=== PATIENT | female | born 1990 | race Caucasian/White ===

== ENCOUNTER 2017-04-14 08:08 | Emergency (ER) | payer MEDICAID, OTHER ==
[~2017-04-14] VITALS: Ht 170.2 cm; Wt 54.0 kg
[~2017-04-14 08:08] MED LIST: ALPR0.5T PO; LEVO25TA9 PO
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
--- NOTE | 2017-04-14 08:35 | NUR ---
URINE OBTAINED AND SENT TO LAB.
[2017-04-14 08:42] LABS: BASOPHILS % (AUTO) 0.2 % (0.0-2.0); EOSINOPHILS # (AUTO) 0.3 /CMM (0.0-0.7); EOSINOPHILS % (AUTO) 4.1 % (0.0-6.0); HEMATOCRIT 41 % (33-45); HEMOGLOBIN 13.8 g/dL (11.5-14.8); LYMPHOCYTES # (AUTO) 1.3 /CMM (0.8-4.8); LYMPHOCYTES % (AUTO) 19.4 % (20.0-44.0); MEAN CORPUSCULAR HEMOGLOBIN 30 PG (26.0-33.0); MEAN CORPUSCULAR HGB CONC 33 g/dl (31.0-36.0); MEAN CORPUSCULAR VOLUME 90 fL (82-100); MONOCYTES # (AUTO) 0.6 /CMM (0.1-1.30); MONOCYTES % (AUTO) 8.6 % (2.0-12.0); NEUTROPHILS # (AUTO) 4.7 /CMM (1.8-8.9); NEUTROPHILS % (AUTO) 67.7 % (43.0-81.0); PLATELET COUNT (AUTO) 292 /CMM (150-450); RDW COEFFICIENT OF VARIATION 12.7 (11.5-15.0); RED BLOOD CELL COUNT(AUTO) 4.61 MIL/uL (4.0-5.2); WHITE BLOOD COUNT (AUTO) 6.9 K/uL (4.3-11.0)
[2017-04-14 08:43] LABS: APPEARANCE,URINE CLOUDY (CLEAR); BILIRUBIN,URINE NEGATIVE (NEGATIVE); BLOOD, URINE NEGATIVE Ery/uL (NEGATIVE); COLOR,URINE YELLOW (YELLOW); KETONES,URINE NEGATIVE (NEGATIVE); LEUKOCYTE ESTERASE ,URINE 1+ (NEGATIVE); NITRITE, URINE NEGATIVE (NEGATIVE); PH,URINE 5.5 (5.0-8.0); PROTEIN,URINE NEGATIVE (NEGATIVE); UGLUCOSE NEGATIVE (NEGATIVE); UROBILINOGEN,URINE 0.2 EU/dL (0.2)
[2017-04-14 08:51] LABS: BACTERIA,URINE Few /HPF (None Seen); RBC,URINE 0-2 /HPF (0-2); SQUAMOUS EPITHELIAL CELL,UR Few /HPF (None Seen)
[2017-04-14 09:14] LABS: ALANINE AMINOTRANSFERASE 19 U/L (12-78); ALBUMIN 3.9 g/dL (3.4-5.0); ALCOHOL, BLOOD < 3 mg/dL (0-0); ALKALINE PHOSPHATASE 70 U/L (46-116); ASPARTATE AMINOTRANSFERASE 17 U/L (15-37); BILIRUBIN,DIRECT 0.1 mg/dL (0.0-0.2); BILIRUBIN,TOTAL 0.6 mg/dL (0.2-1.0); CARBON DIOXIDE 24 mmol/L (21-32); CREATININE 0.7 mg/dL (0.6-1.3); GLUCOSE 98 mg/dL (74-106); SALICYLATE 0.3 mg/dL (2.8-20.0); TOTAL PROTEIN, SERUM 8.1 g/dL (6.4-8.2); UREA NITROGEN, BLOOD 8 mg/dL (7-18)
[2017-04-14 09:15] LABS: ACETAMINOPHEN < 2 ug/ml (10-30)
[2017-04-14 09:22] LABS: CHLORIDE 102 mmol/L (98-107); POTASSIUM 3.6 mmol/L (3.5-5.1); SODIUM SERUM 137 mmol/L (136-145)
[2017-04-14] MEDS ORDERED: ACETAMINOPHEN ES 500 MG TABLET PO ONE ×2 (09:30→10:00)
[2017-04-14] MEDS ORDERED: ACETAMINOPHEN ES 500 MG TABLET ONE ×2 (09:32)
--- NOTE | 2017-04-14 09:42 | NUR ---
Patient discharged to home in stable condition. Written and verbal after care instructions given. Patient verbalizes understanding of instruction.
[2017-04-14 09:48] VITALS: BP 101/60
[2017-04-15] MEDS ORDERED: MIRT15TA PO (11:11)
[2017-04-15] MEDS ORDERED: TRAZ-144 PO (11:11)
[2017-04-16] MEDS ORDERED: LEVO500T15 PO (06:54)
[2017-04-16] MEDS ORDERED: ONDA4TAB5 PO (06:55)
[2017-06-01] MEDS ORDERED: LEVO500T15 PO (08:41)
== END 2017-04-14 09:49 | disposition home or self-care (01) ==
LOC: ER 08:09
DX: T43.211A Poisoning by selective serotonin and norepinephrine reuptake inhibitors, accidental (unintentional), initial encounter (principal); T42.4X1A Poisoning by benzodiazepines, accidental (unintentional), initial encounter; F32.9 Major depressive disorder, single episode, unspecified; F41.9 Anxiety disorder, unspecified; E06.3 Autoimmune thyroiditis; R82.99 Other abnormal findings in urine; Y92.89 Other specified places as the place of occurrence of the external cause; Z88.0 Allergy status to penicillin
CPT/HCPCS: 36415; 80048; 80076; 80305; 80329; 81001; 84703; 85025; 87086; 99284; A4606; G0480 ×2; Z7610; 81000-TC

== ENCOUNTER 2017-04-14 23:09 | Emergency (ER) | payer OTHER ==
[~2017-04-14] VITALS: Ht 170.2 cm; Wt 52.2 kg
[2017-04-14 23:15] VITALS: BP 112/67
[2017-04-14 23:45] LABS: APPEARANCE,URINE CLEAR (CLEAR); BILIRUBIN,URINE NEGATIVE (NEGATIVE); BLOOD, URINE NEGATIVE Ery/uL (NEGATIVE); KETONES,URINE NEGATIVE (NEGATIVE); LEUKOCYTE ESTERASE ,URINE 1+ (NEGATIVE); NITRITE, URINE NEGATIVE (NEGATIVE); PROTEIN,URINE NEGATIVE (NEGATIVE); UGLUCOSE NEGATIVE (NEGATIVE); UROBILINOGEN,URINE 0.2 EU/dL (0.2)
[2017-04-14 23:49] LABS: COLOR,URINE LIGHT PINK (YELLOW)
[2017-04-14 23:53] LABS: BACTERIA,URINE 1+ /HPF (None Seen); RBC,URINE 0-2 /HPF (0-2); SQUAMOUS EPITHELIAL CELL,UR Few /HPF (None Seen); WBC,URINE 0-2 /HPF (0-3)
[2017-04-14] MEDS ORDERED: NITROFURANTOIN/NITROFURAN MAC 100 MG CAPSULE PO STA (23:54)
[2017-04-14] MEDS ORDERED: NITROFURANTOIN/NITROFURAN MAC 100 MG CAPSULE ONE (23:59)
[2017-04-15] MEDS ORDERED: ONDANSETRON 4 MG TAB.RAPDIS ONE (00:12)
[2017-04-15] MEDS ORDERED: ONDANSETRON 4 MG TAB.RAPDIS SL ONE (00:30)
[2017-04-15] MEDS ORDERED: MIRT15TA PO (11:11)
[2017-04-15] MEDS ORDERED: TRAZ-144 PO (11:11)
[2017-04-16] MEDS ORDERED: LEVO500T15 PO (06:54)
[2017-04-16] MEDS ORDERED: ONDA4TAB5 PO (06:55)
[2017-06-01] MEDS ORDERED: LEVO500T15 PO (08:41)
== END 2017-04-15 00:45 | disposition home or self-care (01) ==
LOC: ER 23:12
DX: N39.0 Urinary tract infection, site not specified (principal); F32.9 Major depressive disorder, single episode, unspecified; F41.9 Anxiety disorder, unspecified; Z88.0 Allergy status to penicillin
CPT/HCPCS: 81001; 84703; 87086; 99284; A4606; Q0162; Z7610; 81000-TC

== ENCOUNTER 2017-04-15 07:10 | Inpatient (IN) | payer OTHER ==
[~2017-04-15] VITALS: Ht 170.2 cm; Wt 52.2 kg
--- NOTE | 2017-04-15 07:30 | NUR ---
NAUSEA, VOMITING, FEVER. WAS SEEN HERE YESTERDAY. A/A/O. CHANGED TO GOWN. SIDE RAISL UP. HOB ELEVATED. CONNECTED TO MONITOR. CHANEGED TO GOWN. SEEN AND EVALUATED BY ED PROVIDER.
[2017-04-15] MEDS ORDERED: ONDANSETRON HCL/PF 4 MG/2 ML VIAL ONE (07:33)
--- NOTE | 2017-04-15 07:35 | NUR ---
NEW IV STARTED ON RAC, 20 G. BLOOD DRAWN AND SENT TO LAB.
[2017-04-15 07:40] LABS: BASOPHILS % (AUTO) 0.3 % (0.0-2.0); EOSINOPHILS # (AUTO) 0.3 /CMM (0.0-0.7); EOSINOPHILS % (AUTO) 3.7 % (0.0-6.0); HEMATOCRIT 41 % (33-45); HEMOGLOBIN 13.8 g/dL (11.5-14.8); LYMPHOCYTES # (AUTO) 1.9 /CMM (0.8-4.8); LYMPHOCYTES % (AUTO) 25.4 % (20.0-44.0); MEAN CORPUSCULAR HEMOGLOBIN 30 PG (26.0-33.0); MEAN CORPUSCULAR HGB CONC 33 g/dl (31.0-36.0); MEAN CORPUSCULAR VOLUME 90 fL (82-100); MONOCYTES # (AUTO) 0.5 /CMM (0.1-1.30); MONOCYTES % (AUTO) 6.9 % (2.0-12.0); NEUTROPHILS # (AUTO) 4.7 /CMM (1.8-8.9); NEUTROPHILS % (AUTO) 63.7 % (43.0-81.0); PLATELET COUNT (AUTO) 301 /CMM (150-450); RDW COEFFICIENT OF VARIATION 12.6 (11.5-15.0); WHITE BLOOD COUNT (AUTO) 7.3 K/uL (4.3-11.0)
[2017-04-15] MEDS: IV NS 0.9% 1,000 ML BAG IV ONE ×2 (07:40→07:41)
--- NOTE | 2017-04-15 07:40 | NUR ---
PATIENT MEDICATED PER MD ORDERS.
[2017-04-15] MEDS: ONDANSETRON HCL/PF 4 MG/2 ML VIAL IVP ONE ×2 (07:41→07:44)
[2017-04-15 07:49] LABS: CREATININE 0.7 mg/dL (0.6-1.3)
[2017-04-15 07:56] LABS: BILIRUBIN,DIRECT 0.1 mg/dL (0.0-0.2); BILIRUBIN,TOTAL 0.5 mg/dL (0.2-1.0); TOTAL PROTEIN, SERUM 8.3 g/dL (6.4-8.2)
[2017-04-15] MEDS ORDERED: PROMETHAZINE HCL 25 MG/ML AMPUL ONE (08:18)
[2017-04-15] MEDS ORDERED: diphenhydrAMINE HCL 50 MG/ML VIAL ONE (08:18)
--- NOTE | 2017-04-15 08:28 | NUR ---
PT UNABLE TO PROVIDE URINE SAMPLE AT THIS TIME. WILL TRY AGAIN LATER
[2017-04-15] MEDS ORDERED: diphenhydrAMINE HCL 50 MG/ML VIAL IV ONE (08:30)
[2017-04-15] MEDS ORDERED: PROMETHAZINE HCL 25 MG/ML AMPUL IV ONE (08:30)
[2017-04-15 08:43] LABS: APPEARANCE,URINE TURBID (CLEAR); BILIRUBIN,URINE NEGATIVE (NEGATIVE); BLOOD, URINE NEGATIVE Ery/uL (NEGATIVE); COLOR,URINE YELLOW (YELLOW); KETONES,URINE 1+ (NEGATIVE); LEUKOCYTE ESTERASE ,URINE 1+ (NEGATIVE); NITRITE, URINE NEGATIVE (NEGATIVE); PROTEIN,URINE NEGATIVE (NEGATIVE); UGLUCOSE NEGATIVE (NEGATIVE); UROBILINOGEN,URINE 0.2 EU/dL (0.2)
--- NOTE | 2017-04-15 08:45 | NUR ---
URINE SAMPLE WAS COLLECTED FROM PATIENT AND SEND TO LAB.
[2017-04-15 09:03] LABS: BACTERIA,URINE 1+ /HPF (None Seen); RBC,URINE NONE SEEN /HPF (0-2); SQUAMOUS EPITHELIAL CELL,UR Few /HPF (None Seen)
[2017-04-15] MEDS ORDERED: IV NS 0.9% 1,000 ML IV ONE (09:30)
--- NOTE | 2017-04-15 10:00 | NUR ---
Patient is resting comfortably in bed with eyes closed. Easily aroused. VSS.
[2017-04-15 11:00] VITALS: BP 126/62
[2017-04-15] MEDS ORDERED: LORAZEPAM INJ 2 MG/ML VIAL IV ONE (11:00)
[2017-04-15] MEDS ORDERED: LORAZEPAM INJ 2 MG/ML VIAL ONE (11:04)
[2017-04-15] MEDS ORDERED: TRAZ-144 PO (11:11)
[2017-04-15] MEDS ORDERED: MIRT15TA PO (11:11)
--- NOTE | 2017-04-15 12:08 | NUR ---
MS RN INITIAL NOTES PATIENT IN ROOM. NO SOB OR DISTRESS NOTED AT THIS TIME. PATIENT DENIES PAIN. ON ROOM AIR SATING HIGH 90S. PATIENT ORIENTED TO ROOM AND CALL LIGHT. PATIENT REPORTS MILD FEELING OF NAUSEA AT THIS TIME. CALLED DR LEE WHO GAVE VERBAL ORDERS FOR MEDS AND LABS. WILL CONTINUE TO MONITOR PATIENT.
[2017-04-15] MEDS ORDERED: ALPRAZOLAM 0.5 MG TABLET PO PRN (13:30)
[2017-04-15] MEDS: PANTOPRAZOLE 40 MG TABLET.DR PO SCH (13:33)
[2017-04-15] MEDS: LEVOFLOXACIN 250 MG /D5W 50 ML 250 MG in PREMIX 1 EA IV SCH (15:01)
[2017-04-15] MEDS: Potassium Chloride 20 MEQ in IV D5/ 0.9% NACL 1,000 ML IV PRN (15:01)
[2017-04-15] MEDS: ONDANSETRON HCL/PF 4 MG/2 ML VIAL IV PRN (15:17)
[2017-04-15 16:00] VITALS: BP 99/63
[2017-04-15] MEDS ORDERED: ACETAMINOPHEN 325 MG TABLET PO PRN (16:30)
--- NOTE | 2017-04-15 17:12 | NUR ---
RN NOTES DR LEE ON FLOOR MD ASKS TO HAVE XANAX CHANGED TO 0.75MG DAILY AND HAVE A PRN DOSE OF 0.25MG. WILL PLACE ORDERS.
[2017-04-15] MEDS ORDERED: ALPRAZOLAM 0.25 MG TABLET PO PRN (17:30)
[2017-04-15] MEDS ORDERED: ACETAMINOPHEN ES 500 MG TABLET PO PRN (17:30)
[2017-04-15] MEDS ORDERED: HYDROCODONE/APAP 5/325MG 1 EACH TABLET PO PRN (17:30)
--- NOTE | 2017-04-15 18:37 | NUR ---
RN CLOSING NOTES NO SIGNIFICANT CHANGES IN PATIENT CONDITION THROUGHOUT THE SHIFT. NO SOB OR DISTRESS NOTED AT THIS TIME. PATIENT DENIES PAIN. BED IN A LOW POSITION, CALL LIGHT WITHIN PATIENT REACH. WILL ENDORSE FOR KAELA.
--- NOTE | 2017-04-15 19:00 | NUR ---
MS RN OPENING NOTES RECEIVE PT RESTING IN BED, A/OX 4. NO S/S OF RESPIRATORY DISTRESS OR SOB. SAFETY MEASURES IN PLACE, ON LOW BED TO ENSURE SAFETY. CALL LIGHT WITHIN REACH. WILL CONTINUE TO MONITOR
[2017-04-15 20:00] VITALS: BP 107/67
[2017-04-15] MEDS ORDERED: MIRTAZAPINE 15 MG TABLET PO SCH (22:00)
--- NOTE | 2017-04-15 22:37 | NUR ---
PLACED A CALL TO DR. LEE, [place] SPOKE TO DR. LEE AND RELAYED PT IS REQUESTING TO HAVE XANAX 0.5 MG 1 TABLET PO EVERY 6 HOURS PRN D/C 0.25 MG XANAX PO PRN NOTED AND CARRIED OUT Addendum: 04/15/17 at 2251 by ANDREW BASS RN ADDENDUM: DR. LEE ORDERED OK TO GIVE 0.5 MG 1 TABLET EVERY 6 HOURS PRN
[2017-04-16] MEDS: Potassium Chloride 20 MEQ in IV D5/ 0.9% NACL 1,000 ML IV PRN (03:43)
[2017-04-16] MEDS ORDERED: ALPRAZOLAM 0.5 MG TABLET ONE (06:06)
[2017-04-16] MEDS: ALPRAZOLAM 0.25 MG TABLET PO PRN ×2 (06:09→13:05)
[2017-04-16] MEDS: ONDANSETRON HCL/PF 4 MG/2 ML VIAL IV PRN ×3 (06:17→17:05)
[2017-04-16] MEDS ORDERED: LEVO500T15 PO (06:54)
[2017-04-16] MEDS ORDERED: ONDA4TAB5 PO (06:55)
[2017-04-16 06:59] LABS: BASOPHILS % (AUTO) 0.2 % (0.0-2.0); EOSINOPHILS # (AUTO) 0.2 /CMM (0.0-0.7); EOSINOPHILS % (AUTO) 1.6 % (0.0-6.0); HEMATOCRIT 41 % (33-45); HEMOGLOBIN 13.8 g/dL (11.5-14.8); LYMPHOCYTES # (AUTO) 3.3 /CMM (0.8-4.8); MEAN CORPUSCULAR HEMOGLOBIN 30 PG (26.0-33.0); MEAN CORPUSCULAR HGB CONC 33 g/dl (31.0-36.0); MEAN CORPUSCULAR VOLUME 90 fL (82-100); MONOCYTES # (AUTO) 0.6 /CMM (0.1-1.30); MONOCYTES % (AUTO) 6.5 % (2.0-12.0); NEUTROPHILS # (AUTO) 5.5 /CMM (1.8-8.9); NEUTROPHILS % (AUTO) 57.7 % (43.0-81.0); PLATELET COUNT (AUTO) 336 /CMM (150-450); RED BLOOD CELL COUNT(AUTO) 4.58 MIL/uL (4.0-5.2); WHITE BLOOD COUNT (AUTO) 9.6 K/uL (4.3-11.0)
--- NOTE | 2017-04-16 07:05 | NUR ---
MS RN CLOSING NOTES PATIENT ASLEEP AND EASILY AWAKEN, PT A/O X4, IN STABLE CONDITION, NO CHANGE OF CONDITION THROUGHOUT THE SHIFT. SEMI FOWLERS, RESPIRATIONS EVEN AND UNLABORED, APPEARS NOT IN RESPIRATORY DISTRESS.TOLERATING ROOM AIR 02 SAT 100% RAC 20G PATENT AND INTACT WITH NO S/S OF INFILTRATION NOTED. NO COMPLAINS OF PAIN AT THIS TIME. NURSING CARE RENDERED, KEPT CLEAN AND DRY AND COMFORTABLE, NEEDS ATTENDED AND ANTICIPATED,SAFE HAZARD FREE ENVIRONMENT PROVIDED. OFFLOAD AT ALL TIMES. CALL LIGHT WITHIN EASY TO REACH, FREQUENT VISUAL CHECK DONE FOR SAFETY EVERY 2 HOURS.ON LOW BED AT ALL TIMES TO ENSURE SAFETY, WILL ENDORSE TO THE NEXT SHIFT CONTINUE PLAN OF CARE
[2017-04-16 07:13] VITALS: BP 112/62
--- NOTE | 2017-04-16 07:20 | NUR ---
RN INITIAL NOTES REPORT RECEIVED AT THE BEDSIDE. PATIENT IS SLEEPING. NO SOB OR DISTRESS NOTED AT THIS TIME. PATIENT DOES NOT APPEAR TO BE IN PAIN, NO FACIAL GRIMACE NOTED. BED IN A LOW POSITION, CALL LIGHT WITHIN PATIENT REACH. WILL CONTINUE TO MONITOR.
[2017-04-16 07:31] LABS: CREATININE 0.7 mg/dL (0.6-1.3)
[2017-04-16 08:00] VITALS: BP 109/62
--- NOTE | 2017-04-16 08:23 | NUR ---
RN NOTES ATTEMPTED TO GIVE PATIENT HER AM MEDS. PATIENT STATES, "LATER, I WANT TO SLEEP NOW." WILL ATTEMPTS AGAIN LATER.
[2017-04-16] MEDS ORDERED: ALPRAZOLAM 0.25 MG TABLET PO SCH (09:00)
[2017-04-16] MEDS ORDERED: TRAZODONE 50 MG TABLET PO SCH (09:00)
[2017-04-16] MEDS ORDERED: LEVOTHYROXINE SODIUM 25 MCG TABLET PO SCH (09:00)
[2017-04-16] MEDS ORDERED: ALPRAZOLAM 0.5 MG TABLET PO PRN (09:00)
[2017-04-16] MEDS: PANTOPRAZOLE 40 MG TABLET.DR PO SCH (09:18)
[2017-04-16] MEDS: LEVOFLOXACIN 250 MG /D5W 50 ML 250 MG in PREMIX 1 EA IV SCH (13:05)
[2017-04-16] MEDS ORDERED: LORAZEPAM 0.5 MG TABLET PO PRN (14:30)
[2017-04-16 16:00] VITALS: BP_SYST 103; BP_SYST 125; BP_DIAS 53; BP_DIAS 89
--- NOTE | 2017-04-16 18:42 | NUR ---
RN CLOSING NOTES PATIENT DUE FOR DISCHARGE TONIGHT BETWEEN 7-730. ALL PAPERWORK SIGNED AND BELONGINGS ACCOUNTED FOR. NO SIGNIFICANT CHANGES IN PATIENT CONDITION THROUGHOUT THE SHIFT. NO SOB OR DISTRESS NOTED AT THIS TIME. PATIENT DENIES PAIN AT THIS TIME. BED IN A LOW POSITION, CALL LIGHT WITHIN PATIENT REACH. WILL ENDORSE FOR KAELA.
[2017-04-17] MEDS ORDERED: ALPRAZOLAM 0.5 MG TABLET PO SCH (09:00)
== END 2017-04-16 19:15 | disposition home or self-care (01) | DRG 463 ==
LOC: ER 07:12 → MEDSG2 11:59
PROVIDERS: ADMIT Internal Medicine; ATTEND Internal Medicine
DX: N39.0 Urinary tract infection, site not specified (principal); A08.4 Viral intestinal infection, unspecified; F41.0 Panic disorder [episodic paroxysmal anxiety]; F41.9 Anxiety disorder, unspecified; E03.9 Hypothyroidism, unspecified
CPT/HCPCS: 36415; 80048-TC; 80076-TC; 81000-TC; 83690-TC; 84703-TC; 85025-TC; 87081-TC; 87086-TC; A4216; A4606; J1200; J1956; J2060; J2405; J2550; J3480; J7030; J7042; Z7610

== ENCOUNTER 2017-05-31 22:58 | Inpatient (IN) | payer OTHER ==
[~2017-05-31] VITALS: Ht 170.2 cm; Wt 58.5 kg
[~2017-05-31 22:58] MED LIST changes: +LEVO500T15 PO; +MIRT15TA PO; +ONDA4TAB5 PO; +TRAZ-144 PO
[2017-05-31] MEDS ORDERED: MORPHINE SULFATE INJ 2 MG/ML DISP.SYRIN IV ONE (23:30)
[2017-05-31] MEDS ORDERED: ONDANSETRON HCL/PF 4 MG/2 ML VIAL IVP ONE (23:30)
[2017-05-31] MEDS ORDERED: IV NS 0.9% 1,000 ML BAG IV ONE ×2 (23:30)
--- NOTE | 2017-05-31 23:50 | NUR ---
PT A/OX4 BREATHING EFFORTLESSLY ON ROOM AIR, PT STATES SHE HAS BEEN HVAING ABD PAIN WITH N/V X 4 DAYS, PT ON MONITOR, IV PLACED LABS DRAWN, PT GIVEN A WARM BLANKET, MD MADE AWARE WILL CONTINUE TO MONITOR.
[2017-05-31 23:58] LABS: BASOPHILS # (AUTO) 0.1 /CMM (0.0-0.2); BASOPHILS % (AUTO) 0.7 % (0.0-2.0); EOSINOPHILS # (AUTO) 0.1 /CMM (0.0-0.7); EOSINOPHILS % (AUTO) 1.3 % (0.0-6.0); HEMATOCRIT 41 % (33-45); HEMOGLOBIN 14.1 g/dL (11.5-14.8); LYMPHOCYTES # (AUTO) 2.3 /CMM (0.8-4.8); LYMPHOCYTES % (AUTO) 29.2 % (20.0-44.0); MEAN CORPUSCULAR HEMOGLOBIN 30 PG (26.0-33.0); MEAN CORPUSCULAR HGB CONC 34 g/dl (31.0-36.0); MEAN CORPUSCULAR VOLUME 89 fL (82-100); MONOCYTES # (AUTO) 0.4 /CMM (0.1-1.30); MONOCYTES % (AUTO) 5.5 % (2.0-12.0); NEUTROPHILS # (AUTO) 5.1 /CMM (1.8-8.9); NEUTROPHILS % (AUTO) 63.3 % (43.0-81.0); PLATELET COUNT (AUTO) 363 /CMM (150-450); RDW COEFFICIENT OF VARIATION 12.7 (11.5-15.0); RED BLOOD CELL COUNT(AUTO) 4.64 MIL/uL (4.0-5.2)
[2017-06-01] MEDS ORDERED: ONDANSETRON HCL/PF 4 MG/2 ML VIAL ONE ×2 (00:04→01:53)
[2017-06-01 00:10] LABS: CALCIUM, SERUM 9.6 mg/dL (8.5-10.1); CREATININE 0.8 mg/dL (0.6-1.3); POTASSIUM 3.8 mmol/L (3.5-5.1)
[2017-06-01 00:16] LABS: ALBUMIN 4.1 g/dL (3.4-5.0); BILIRUBIN,DIRECT 0.2 mg/dL (0.0-0.2); BILIRUBIN,TOTAL 0.9 mg/dL (0.2-1.0); TOTAL PROTEIN, SERUM 8.5 g/dL (6.4-8.2)
--- NOTE | 2017-06-01 00:16 | NUR ---
PT DENIES PAIN AT THIS TIME MD MADE AWARE AND PT STATES SHE DOES NOT WANT THE MORPHINE BECAUSE SHE IS NOT IN ANY PAIN WILL CONTINUE TO MONITOR.
[2017-06-01] MEDS ORDERED: ONDANSETRON HCL/PF 4 MG/2 ML VIAL IV ONE (01:30)
--- NOTE | 2017-06-01 01:37 | NUR ---
PT HELPED TO THE BATHROOM AND PATIENT WAS ABLE TOP GIVE URINE SAMPLE, LAB CALLED FOR PICKUP, PT HELPED BACK INTO BED AND PUT BACK ON MONITOR, VSS, WILL CONTINUE TO MONITOR.
[2017-06-01 01:52] LABS: APPEARANCE,URINE SL CLOUDY (CLEAR); BILIRUBIN,URINE NEGATIVE (NEGATIVE); BLOOD, URINE 3+ Ery/uL (NEGATIVE); KETONES,URINE 1+ (NEGATIVE); LEUKOCYTE ESTERASE ,URINE TRACE (NEGATIVE); NITRITE, URINE NEGATIVE (NEGATIVE); PROTEIN,URINE NEGATIVE (NEGATIVE); UGLUCOSE NEGATIVE (NEGATIVE); UROBILINOGEN,URINE 0.2 EU/dL (0.2)
[2017-06-01 01:53] LABS: COLOR,URINE DARK YELLOW (YELLOW)
[2017-06-01 01:57] LABS: BACTERIA,URINE Moderate /HPF (None Seen)
[2017-06-01 01:58] LABS: MUCUS,URINE Moderate /LPF (None Seen); SQUAMOUS EPITHELIAL CELL,UR Many /HPF (None Seen)
[2017-06-01] MEDS ORDERED: METOCLOPRAMIDE HCL 10 MG/2 ML VIAL ONE (02:23)
[2017-06-01] MEDS ORDERED: METOCLOPRAMIDE HCL 10 MG/2 ML VIAL IV ONE (02:30)
[2017-06-01] MEDS ORDERED: LORAZEPAM INJ 2 MG/ML VIAL IV ONE (03:00)
[2017-06-01] MEDS ORDERED: LORAZEPAM INJ 2 MG/ML VIAL ONE (03:08)
[2017-06-01] MEDS ORDERED: MESA400C2 PO (04:48)
--- NOTE | 2017-06-01 04:49 | NUR ---
PT STATES SHE IS FEELING BETTER THAN BEFORE BUT THE NAUSEA IS STILL GOING ON, PT IS RESTING IN BED, NAD NOTED, ON MONITOR, VSS, WILL CONTINUE TO MONITOR.
[2017-06-01 05:00] VITALS: BP 107/46
--- NOTE | 2017-06-01 05:45 | NUR ---
MS SUGAR BOILER INITIAL NOTES ADMIT PT FROM ER VIA WHEELCHAIR ACCOMPANIED BY HUMAN RESOURCES PROFESSIONAL . DX OF VOMITING. PT IS ALERT ORIENTED X4 AMBULATORY , NO N/V NOTED AT THIS TIME. NO SIGNS OF ANY ACUTE DISTRESS NOTED. SHE STATED SHE MUCH FEEL BETTER AND SHE STARTED TELLING THE STORY BEFORE SHE ADMITTED HERE. SHE'S AWARE HOW TO USED THE CALL LIGHT. KEPT HER WARM AND COMFORTABLE AT ALL TIMES. PLACE CALL LIGHT AT REACH.
[2017-06-01] MEDS ORDERED: IV PREMIX D5 1/2NS + KCL 1,000 ML IV ONE (05:47)
[2017-06-01] MEDS ORDERED: Potassium Chloride 20 MEQ in IV D5/0.45 NACL 1,000 ML IV SCH (06:00)
[2017-06-01 06:01] VITALS: BP 107/60
--- NOTE | 2017-06-01 07:00 | NUR ---
CUSTOMER ORDER CLERK CLOSING NOTES PT RESTING AT THIS TIME WITHOUT ANY ACUTE DISTRESS OR ANY DISCOMFORT NOTED. IVF STARTED D51/2 NS WITH 20 MEQ KCL AT 100ML/HR INFUSING ON HER LEFT HAND. KEPT HER WARM AND COMFORTABLE AT ALL TIMES. ENDORSE TO AM NURSE FOR CONTINUITY OF CARE.
--- NOTE | 2017-06-01 07:20 | NUR ---
RN NOTES PT IS IN BED, SLEEPING COMFORTABLY. PT ON RA, RESPIRATIONS ARE EVEN AND UNLABORED. IV ON L HAND, INTACT AND PATENT, RUNNING D51/2 NS + 20MEQ KCL @ 100ML/HR. SAFETY MEASURES ARE IN PLACE, CALL LIGHT IS IN REACH. WILL CONTINUE TO MONITOR.
[2017-06-01] MEDS ORDERED: Potassium Chloride 20 MEQ in IV D5/0.45 NACL 1,000 ML IV PRN (07:53)
[2017-06-01 08:00] VITALS: BP 110/60
[2017-06-01] MEDS ORDERED: ONDANSETRON HCL/PF 4 MG/2 ML VIAL IVP PRN (08:00)
[2017-06-01] MEDS ORDERED: LORAZEPAM 1 MG TABLET PO PRN (08:00)
[2017-06-01] MEDS ORDERED: IBUP-1481 PO (08:17)
[2017-06-01] MEDS ORDERED: ONDA4TAB5 PO (08:17)
[2017-06-01] MEDS ORDERED: LEVO500T15 PO (08:41)
[2017-06-01] MEDS ORDERED: ALPRAZOLAM 0.5 MG TABLET PO SCH (09:00)
[2017-06-01] MEDS ORDERED: PANTOPRAZOLE 40 MG VIAL IV SCH (09:00)
[2017-06-01] MEDS ORDERED: LEVOFLOXACIN 250 MG /D5W 50 ML 250 MG in PREMIX 1 EA IV SCH (09:00)
[2017-06-01] MEDS ORDERED: TRAZODONE 50 MG TABLET PO SCH (09:00)
[2017-06-01 12:53] LABS: BASOPHILS % (AUTO) 0.4 % (0.0-2.0); EOSINOPHILS % (AUTO) 0.5 % (0.0-6.0); HEMATOCRIT 37 % (33-45); HEMOGLOBIN 12.6 g/dL (11.5-14.8); LYMPHOCYTES # (AUTO) 2.4 /CMM (0.8-4.8); LYMPHOCYTES % (AUTO) 26.8 % (20.0-44.0); MEAN CORPUSCULAR HEMOGLOBIN 30 PG (26.0-33.0); MEAN CORPUSCULAR HGB CONC 34 g/dl (31.0-36.0); MEAN CORPUSCULAR VOLUME 89 fL (82-100); MONOCYTES # (AUTO) 0.7 /CMM (0.1-1.30); MONOCYTES % (AUTO) 7.8 % (2.0-12.0); NEUTROPHILS # (AUTO) 5.8 /CMM (1.8-8.9); NEUTROPHILS % (AUTO) 64.5 % (43.0-81.0); PLATELET COUNT (AUTO) 329 /CMM (150-450); RDW COEFFICIENT OF VARIATION 12.2 (11.5-15.0); RED BLOOD CELL COUNT(AUTO) 4.15 MIL/uL (4.0-5.2); WHITE BLOOD COUNT (AUTO) 8.9 K/uL (4.3-11.0)
[2017-06-01 13:09] LABS: CALCIUM, SERUM 8.7 mg/dL (8.5-10.1); CREATININE 0.7 mg/dL (0.6-1.3); MAGNESIUM 1.8 mg/dL (1.8-2.4); PHOSPHORUS 2.8 mg/dL (2.5-4.9); POTASSIUM 3.7 mmol/L (3.5-5.1)
[2017-06-01 16:00] VITALS: BP 118/69
--- NOTE | 2017-06-01 18:10 | NUR ---
RN NOTES PT LEFT IN STABLE CONDITION ACCOMPANIED BY FRIEND. DISCHARGE PAPERS AND BELONGINGS LIST WERE SIGNED. PTS IV AND ID BAND WERE REMOVED. PT WAS TOLD TO FOLLOW UP WITH PCP WITHIN 1 WEEK AND GET AN OUTPATIENT COLONOSCOPY DONE. PT STATED SHE WOULD MAKE THE APPOINTMENTS ON HER OWN. PT WAS GIVEN NEW PRESCRIPTIONS TO HAVE FILLED.
[2017-06-01] MEDS ORDERED: MIRTAZAPINE 15 MG TABLET PO SCH (22:00)
[2017-06-02] MEDS ORDERED: LEVOTHYROXINE SODIUM 25 MCG TABLET PO SCH (08:00)
== END 2017-06-01 18:28 | disposition home or self-care (01) | DRG 249 ==
LOC: ER 23:00 → MED 06-01 04:42
PROVIDERS: ADMIT Internal Medicine; ATTEND Internal Medicine
DX: A09 Infectious gastroenteritis and colitis, unspecified (principal); K51.90 Ulcerative colitis, unspecified, without complications; N39.0 Urinary tract infection, site not specified; F32.9 Major depressive disorder, single episode, unspecified; F41.9 Anxiety disorder, unspecified; E06.3 Autoimmune thyroiditis; Z88.0 Allergy status to penicillin; Z79.899 Other long term (current) drug therapy; N20.0 Calculus of kidney
CPT/HCPCS: 36415; 80048-TC; 80076-TC; 81000-TC; 83605-TC; 83690-TC; 83735-TC; 84100-TC; 84702-TC; 84703-TC; 85025-TC; 87040-TC; 87081-TC; 87086-TC; A4216; A6402; A6403; C9113; J1956; J2060; J2405; J2765; J3480; J3490; J7030

== ENCOUNTER 2018-08-04 20:09 | Emergency (ER) | payer OTHER ==
[~2018-08-04] VITALS: Ht 170.2 cm; Wt 52.2 kg
[~2018-08-04 20:09] MED LIST changes: +IBUP-1953 PO; -LEVO500T15 PO; +LEVO500T75 PO; +MESA400C2 PO; -TRAZ-144 PO; +TRAZ-182 PO
--- NOTE | 2018-08-04 20:10 | NUR ---
PT BIB SELF. COMP OF HAVING FLU LIKE SYMPTOMS. N/V NOTED 1X EPISODE TODAY. NO SOB NOTED. NO ACUTE DISTRESS AT THIS TIME. AWAITING MD HACKETT
[2018-08-04] MEDS ORDERED: diphenhydrAMINE HCL 50 MG/ML VIAL ONE (21:14)
[2018-08-04] MEDS ORDERED: METOCLOPRAMIDE HCL 10 MG/2 ML VIAL ONE (21:14)
[2018-08-04] MEDS ORDERED: diphenhydrAMINE HCL 50 MG/ML VIAL IV ONE (21:30)
[2018-08-04] MEDS ORDERED: IV NS 0.9% 250 ML BAG IV ONE (21:30)
[2018-08-04] MEDS ORDERED: IV NS 0.9% 1,000 ML BAG IV ONE (21:30)
[2018-08-04] MEDS ORDERED: METOCLOPRAMIDE HCL 10 MG/2 ML VIAL IV ONE (21:30)
[2018-08-04] MEDS ORDERED: KETOROLAC TROMETHAMINE INJ 30 MG/ML VIAL ONE (21:40)
[2018-08-04] MEDS ORDERED: ONDANSETRON HCL/PF 4 MG/2 ML VIAL ONE (21:40)
[2018-08-04] MEDS ORDERED: ONDANSETRON HCL/PF 4 MG/2 ML VIAL IV ONE (22:00)
[2018-08-04] MEDS ORDERED: KETOROLAC TROMETHAMINE INJ 30 MG/ML VIAL IV ONE (22:00)
[2018-08-04 23:09] VITALS: BP 110/62
== END 2018-08-04 23:09 | disposition home or self-care (01) ==
LOC: ER 20:17
DX: E86.0 Dehydration (principal); R51 Headache; R19.7 Diarrhea, unspecified; R11.2 Nausea with vomiting, unspecified; F41.0 Panic disorder [episodic paroxysmal anxiety]; F17.200 Nicotine dependence, unspecified, uncomplicated; E06.3 Autoimmune thyroiditis; Z88.0 Allergy status to penicillin; Z60.2 Problems related to living alone; Z79.899 Other long term (current) drug therapy
CPT/HCPCS: 87400; J1200; J1885; J2405; J2765; J7030; J7050

== ENCOUNTER 2018-11-08 08:48 | Emergency (ER) | payer OTHER ==
[~2018-11-08] VITALS: Ht 170.2 cm; Wt 60.8 kg
[2018-11-08 08:50] VITALS: BP 117/71
[2018-11-08] MEDS ORDERED: ONDANSETRON 4 MG TAB.RAPDIS ONE (09:09)
[2018-11-08 09:29] LABS: BASOPHILS % (AUTO) 0.6 % (0.0-2.0); HEMATOCRIT 36 % (33-45); MEAN CORPUSCULAR HGB CONC 35 g/dl (31.0-36.0); MONOCYTES # (AUTO) 0.5 /CMM (0.1-1.30)
[2018-11-08] MEDS ORDERED: ONDANSETRON 4 MG TAB.RAPDIS SL ONE (09:30)
[2018-11-08] MEDS ORDERED: IBUPROFEN 600 MG TABLET PO ONE ×2 (09:35→10:00)
[2018-11-08 09:36] LABS: CALCIUM, SERUM 8.6 mg/dL (8.5-10.1); CREATININE 0.6 mg/dL (0.6-1.3); POTASSIUM 3.9 mmol/L (3.5-5.1)
[2018-11-08 09:40] LABS: EOSINOPHILS % (AUTO) 2.6 % (0.0-6.0); HEMOGLOBIN 12.5 g/dL (11.5-14.8); LYMPHOCYTES # (AUTO) 1.9 /CMM (0.8-4.8); LYMPHOCYTES % (AUTO) 25.5 % (20.0-44.0); MEAN CORPUSCULAR VOLUME 92 fL (82-100); MONOCYTES % (AUTO) 6.6 % (2.0-12.0); NEUTROPHILS # (AUTO) 4.7 /CMM (1.8-8.9); NEUTROPHILS % (AUTO) 64.7 % (43.0-81.0); PLATELET COUNT (AUTO) 305 /CMM (150-450); RED BLOOD CELL COUNT(AUTO) 3.91 MIL/uL (4.0-5.2); WHITE BLOOD COUNT (AUTO) 7.3 K/uL (4.3-11.0)
--- NOTE | 2018-11-08 10:25 | NUR ---
Patient discharged to home in stable condition. Written and verbal after care instructions given. Patient verbalizes understanding of instruction.
== END 2018-11-08 10:25 | disposition home or self-care (01) ==
LOC: ER 08:52
DX: R11.0 Nausea (principal); R53.1 Weakness; R42 Dizziness and giddiness; F41.9 Anxiety disorder, unspecified; E06.3 Autoimmune thyroiditis; F17.200 Nicotine dependence, unspecified, uncomplicated; Z88.0 Allergy status to penicillin; Z60.2 Problems related to living alone; Z79.899 Other long term (current) drug therapy
CPT/HCPCS: 36415; 80048; 85025; 99283; Q0162

== ENCOUNTER 2019-05-23 20:39 | Emergency (ER) | payer OTHER ==
[~2019-05-23] VITALS: Ht 170.2 cm; Wt 59.0 kg
--- NOTE | 2019-05-23 20:50 | NUR ---
"BIBRA FROM HOME C/O LOWER ABDOMEN INCISION SITE PAIN AND BLEEDING LIPO SUCTION PROCEDURE DONE TODAY" PT AAOX4, -SOB, NAD NOTED, VSS, PENDING MD HACKETT
[2019-05-23 21:53] LABS: BASOPHILS % (AUTO) 0.2 % (0.0-2.0); EOSINOPHILS % (AUTO) 0.3 % (0.0-6.0); HEMATOCRIT 39 % (33-45); HEMOGLOBIN 13.2 g/dL (11.5-14.8); LYMPHOCYTES # (AUTO) 1.5 /CMM (0.8-4.8); LYMPHOCYTES % (AUTO) 7.8 % (20.0-44.0); MEAN CORPUSCULAR HGB CONC 34 g/dl (31.0-36.0); MEAN CORPUSCULAR VOLUME 92 fL (82-100); MONOCYTES # (AUTO) 1.3 /CMM (0.1-1.30); MONOCYTES % (AUTO) 6.8 % (2.0-12.0); NEUTROPHILS # (AUTO) 16.2 /CMM (1.8-8.9); NEUTROPHILS % (AUTO) 84.9 % (43.0-81.0); PLATELET COUNT (AUTO) 305 /CMM (150-450); WHITE BLOOD COUNT (AUTO) 19.1 K/uL (4.3-11.0)
[2019-05-23] MEDS ORDERED: HYDROMORPHONE 1 MG/1 ML DISP.SYRIN ONE ×2 (21:55→23:20)
[2019-05-23] MEDS ORDERED: LORAZEPAM INJ 2 MG/ML VIAL ONE (21:56)
[2019-05-23] MEDS ORDERED: IV NS 0.9% 1,000 ML BAG IV ONE (22:00)
[2019-05-23] MEDS ORDERED: LORAZEPAM INJ 2 MG/ML VIAL IV ONE (22:00)
[2019-05-23] MEDS ORDERED: ONDANSETRON HCL/PF 4 MG/2 ML VIAL IV ONE (22:00)
[2019-05-23] MEDS ORDERED: HYDROMORPHONE INJ 2 MG/ML DISP.SYRIN IV ONE (22:00)
[2019-05-23] MEDS ORDERED: ONDANSETRON HCL/PF 4 MG/2 ML VIAL ONE (22:02)
[2019-05-23 22:03] LABS: CALCIUM, SERUM 8.7 mg/dL (8.5-10.1); CREATININE 0.7 mg/dL (0.6-1.3); POTASSIUM 4.1 mmol/L (3.5-5.1)
[2019-05-23] MEDS ORDERED: diphenhydrAMINE HCL 50 MG/ML VIAL ONE (23:05)
--- NOTE | 2019-05-23 23:20 | NUR ---
PT IS STATING SHE STARTING GEN BODY ITCHING, DENIES ANY SOB AT THIS TIME. CHANDA WESTON AWARE.
[2019-05-23] MEDS ORDERED: HYDROMORPHONE INJ 0.5 MG/0.5 ML SYRINGE IV ONE (23:30)
--- NOTE | 2019-05-23 23:41 | NUR ---
Patient discharged to home in stable condition. Written and verbal after care instructions given. Patient verbalizes understanding of instruction. IV removed. Catheter intact and site benign. Pressure and 4x4 applied to site. No bleeding noted.
[2019-05-24 00:11] VITALS: BP 121/67
[2019-05-24] MEDS ORDERED: diphenhydrAMINE HCL 50 MG/ML VIAL IV ONE (00:30)
== END 2019-05-24 00:12 | disposition home or self-care (01) ==
LOC: ER 20:42
DX: G89.18 Other acute postprocedural pain (principal); K91.840 Postprocedural hemorrhage of a digestive system organ or structure following a digestive system procedure; F41.9 Anxiety disorder, unspecified; D72.829 Elevated white blood cell count, unspecified; F17.200 Nicotine dependence, unspecified, uncomplicated; E06.3 Autoimmune thyroiditis; Z88.0 Allergy status to penicillin; Z60.2 Problems related to living alone; Z79.899 Other long term (current) drug therapy
CPT/HCPCS: 36415; 80048; 85025; 85730; 96374; 96375; 96376; 99283; J1170 ×2; J1200; J2060; J2405; J7030

== ENCOUNTER 2019-07-31 10:18 | Emergency (ER) | payer OTHER ==
[~2019-07-31] VITALS: Ht 170.2 cm; Wt 54.4 kg
[2019-07-31 10:27] VITALS: BP 100/60
--- NOTE | 2019-07-31 12:39 | NUR ---
AMBULATORY, NO DISTRESS NOTED, BREATHING EVEN AND UNLABORED, NO COUGHING OBSERVED. DR. CALI AT BEDSIDE EXPLAINED DISCHARGE INSTRUCTIONS. Patient discharged to home in stable condition. Written and verbal after care instructions given. Patient verbalizes understanding of instruction.
== END 2019-07-31 12:40 | disposition home or self-care (01) ==
LOC: ER 10:18
DX: J06.9 Acute upper respiratory infection, unspecified (principal); F10.10 Alcohol abuse, uncomplicated; F17.200 Nicotine dependence, unspecified, uncomplicated; Z79.899 Other long term (current) drug therapy; Y90.9 Presence of alcohol in blood, level not specified; Z88.0 Allergy status to penicillin; Z60.2 Problems related to living alone

== ENCOUNTER 2019-09-07 10:58 | Emergency (ER) | payer OTHER ==
[~2019-09-07] VITALS: Ht 170.2 cm; Wt 54.4 kg
--- NOTE | 2019-09-07 11:00 | NUR ---
[place] FROM HOME C/O WEAKNESS STARTED THIS MORNING "GOT COUPLE OF DRINKS LAST NIGHT" BG 100. TO ER BED 10, HOOKED TO MONITOR AND POX, CHANGED TO HOSP GOWN, WARM BLANKET PROVIDED, AOx4 , BREATHING EVEN AND UNLABORED, NAD NOTED. AWAITING MD HACKETT
--- NOTE | 2019-09-07 11:17 | NUR ---
DR LAU AT BEDSIDE
[2019-09-07] MEDS ORDERED: ACETAMINOPHEN ES 500 MG TABLET ONE (11:24)
[2019-09-07] MEDS ORDERED: ACETAMINOPHEN ES 500 MG TABLET PO ONE (11:30)
[2019-09-07] MEDS ORDERED: IV NS 0.9% 1,000 ML BAG IV ONE ×3 (12:00→14:00)
[2019-09-07 12:03] LABS: BASOPHILS % (AUTO) 0.6 % (0.0-2.0); EOSINOPHILS % (AUTO) 2.1 % (0.0-6.0); HEMATOCRIT 39 % (33-45); HEMOGLOBIN 12.8 g/dL (11.5-14.8); LYMPHOCYTES # (AUTO) 1.3 /CMM (0.8-4.8); LYMPHOCYTES % (AUTO) 17.2 % (20.0-44.0); MEAN CORPUSCULAR HGB CONC 33 g/dl (31.0-36.0); MEAN CORPUSCULAR VOLUME 90 fL (82-100); MONOCYTES # (AUTO) 0.4 /CMM (0.1-1.30); MONOCYTES % (AUTO) 5.3 % (2.0-12.0); NEUTROPHILS # (AUTO) 5.7 /CMM (1.8-8.9); NEUTROPHILS % (AUTO) 74.8 % (43.0-81.0); PLATELET COUNT (AUTO) 266 /CMM (150-450); RED BLOOD CELL COUNT(AUTO) 4.27 MIL/uL (4.0-5.2); WHITE BLOOD COUNT (AUTO) 7.6 K/uL (4.3-11.0)
[2019-09-07 12:08] LABS: CALCIUM, SERUM 8.2 mg/dL (8.5-10.1); CREATININE 0.6 mg/dL (0.6-1.3); POTASSIUM 4.4 mmol/L (3.5-5.1)
[2019-09-07 12:13] LABS: ALBUMIN 3.4 g/dL (3.4-5.0); BILIRUBIN,DIRECT 0.1 mg/dL (0.0-0.2); BILIRUBIN,TOTAL 0.5 mg/dL (0.2-1.0)
--- NOTE | 2019-09-07 12:56 | NUR ---
URINE SAMPLE SENT TO LAB
--- NOTE | 2019-09-07 14:34 | NUR ---
IV removed. Catheter intact and site benign. Pressure and 4x4 applied to site. No bleeding noted.Patient discharged to home in stable condition. Written and verbal after care instructions given. Patient verbalizes understanding of instruction.
[2019-09-07 14:35] VITALS: BP 102/54
== END 2019-09-07 14:36 | disposition home or self-care (01) ==
LOC: ER 10:58
DX: E86.0 Dehydration (principal); F41.9 Anxiety disorder, unspecified; E06.3 Autoimmune thyroiditis; F17.200 Nicotine dependence, unspecified, uncomplicated; Z88.0 Allergy status to penicillin; Z60.2 Problems related to living alone; Z79.899 Other long term (current) drug therapy
CPT/HCPCS: 36415; 80048; 80076; 83690; 84703; 85025; 96360; 96361; 99283; J7030 ×2

== ENCOUNTER 2021-02-04 21:40 | Emergency (ER) | payer OTHER ==
[~2021-02-04] VITALS: Ht 170.2 cm; Wt 56.2 kg
[~2021-02-04 21:40] MED LIST changes: +LEVO500T23 PO; -LEVO500T75 PO; +MIRT-121 PO; -MIRT15TA PO
--- NOTE | 2021-02-04 22:18 | NUR ---
PT AAOX4. BIBSELF C/O NAUSEA, DIARRHEA, ABDOMINAL PAIN, CHILLS, AND BODY PAIN. PLACED IN BED 8 ON MONITOR AND PULSE OX. AWAITING ER MD FOR EVAL AND ORDERS.
[2021-02-04] MEDS ORDERED: ONDANSETRON HCL/PF 4 MG/2 ML VIAL ONE (22:26)
[2021-02-04] MEDS ORDERED: ONDANSETRON HCL/PF 4 MG/2 ML VIAL IVP ONE (22:30)
[2021-02-04] MEDS ORDERED: IV NS 0.9% 1,000 ML BAG IV ONE (22:30)
[2021-02-04 22:47] LABS: BASOPHILS # (AUTO) 0.1 K/uL (0.0-0.2); BASOPHILS % (AUTO) 0.5 % (0.0-2.0); EOSINOPHILS % (AUTO) 1.7 % (0.0-6.0); HEMATOCRIT 41 % (33-45); HEMOGLOBIN 13.9 g/dL (11.5-14.8); LYMPHOCYTES # (AUTO) 1.8 K/uL (0.8-4.8); LYMPHOCYTES % (AUTO) 16.2 % (20.0-44.0); MEAN CORPUSCULAR HGB CONC 34 g/dl (31.0-36.0); MEAN CORPUSCULAR VOLUME 93 fL (82-100); MONOCYTES # (AUTO) 0.6 K/uL (0.1-1.30); MONOCYTES % (AUTO) 5.5 % (2.0-12.0); NEUTROPHILS # (AUTO) 8.3 K/uL (1.8-8.9); NEUTROPHILS % (AUTO) 76.1 % (43.0-81.0); PLATELET COUNT (AUTO) 311 K/uL (150-450); RED BLOOD CELL COUNT(AUTO) 4.38 MIL/uL (4.0-5.2)
[2021-02-04 22:54] LABS: CALCIUM, SERUM 8.9 mg/dL (8.5-10.1); CREATININE 0.6 mg/dL (0.6-1.3); POTASSIUM 3.9 mmol/L (3.5-5.1)
[2021-02-04 23:00] LABS: BILIRUBIN,DIRECT 0.1 mg/dL (0.0-0.2); BILIRUBIN,TOTAL 0.5 mg/dL (0.2-1.0); TOTAL PROTEIN, SERUM 8.1 g/dL (6.4-8.2)
[2021-02-05 00:11] LABS: BILIRUBIN,URINE Negative (NEGATIVE); COLOR,URINE YELLOW (YELLOW); LEUKOCYTE ESTERASE ,URINE Negative (NEGATIVE); NITRITE, URINE Negative (NEGATIVE); PH,URINE 5.5 (5.0-8.0); PROTEIN,URINE Negative (NEGATIVE); UGLUCOSE Negative (NEGATIVE); UROBILINOGEN,URINE 0.2 EU/dL (0.2)
[2021-02-05] MEDS ORDERED: ONDA4TAB5 PO (00:40)
--- NOTE | 2021-02-05 00:53 | NUR ---
Patient discharged to home in stable condition. Written and verbal after care instructions given. Patient verbalizes understanding of instruction. Pt ambulated out of ED. VSS.
[2021-02-05 01:18] VITALS: BP 116/76
== END 2021-02-05 01:20 | disposition home or self-care (01) ==
LOC: ER 21:44
DX: K52.9 Noninfective gastroenteritis and colitis, unspecified (principal); F41.9 Anxiety disorder, unspecified; R68.83 Chills (without fever); Z20.822 Contact with and (suspected) exposure to COVID-19; E06.3 Autoimmune thyroiditis; Z88.0 Allergy status to penicillin; Z79.899 Other long term (current) drug therapy
CPT/HCPCS: 36415; 80048; 80076; 81003; 83690; 84703; 85025; 87426; 96361; 96374; 99284; C9803; J2405; J7030

== ENCOUNTER 2021-05-28 00:31 | Emergency (ER) | payer OTHER ==
[~2021-05-28] VITALS: Ht 170.2 cm; Wt 54.4 kg
--- NOTE | 2021-05-28 00:50 | NUR ---
pt bibself c/o mid and LLQ abd pain and lower back pain. Pt aaox4 breathing evenly and unlabored. Pt attached to monitor and pox. LAC 20 initated and blood sent to lab. Pt skin warm and dry. Pt states " it feels like a kidney stone, phyllis had that before". Pt given blanket and call light within reach
--- NOTE | 2021-05-28 01:10 | NUR ---
AT BED SIDE
[2021-05-28] MEDS ORDERED: ONDANSETRON HCL/PF 4 MG/2 ML VIAL ONE (01:18)
[2021-05-28] MEDS ORDERED: MORPHINE SULFATE INJ 4 MG/ML DISP.SYRIN ONE (01:19)
[2021-05-28] MEDS ORDERED: MORPHINE SULFATE INJ 2 MG/ML DISP.SYRIN IV ONE (01:30)
[2021-05-28] MEDS ORDERED: IV NS 0.9% 1,000 ML BAG IV ONE (01:30)
[2021-05-28] MEDS ORDERED: ONDANSETRON HCL/PF 4 MG/2 ML VIAL IVP ONE (01:30)
[2021-05-28 01:33] LABS: BASOPHILS # (AUTO) 0.1 K/uL (0.0-0.2); BASOPHILS % (AUTO) 0.5 % (0.0-2.0); EOSINOPHILS % (AUTO) 2.6 % (0.0-6.0); HEMATOCRIT 39 % (33-45); HEMOGLOBIN 13.3 g/dL (11.5-14.8); LYMPHOCYTES # (AUTO) 2.1 K/uL (0.8-4.8); MEAN CORPUSCULAR HGB CONC 34 g/dl (31.0-36.0); MEAN CORPUSCULAR VOLUME 93 fL (82-100); MONOCYTES # (AUTO) 0.8 K/uL (0.1-1.30); MONOCYTES % (AUTO) 7.4 % (2.0-12.0); NEUTROPHILS # (AUTO) 7.5 K/uL (1.8-8.9); NEUTROPHILS % (AUTO) 69.5 % (43.0-81.0); PLATELET COUNT (AUTO) 288 K/uL (150-450); RED BLOOD CELL COUNT(AUTO) 4.18 MIL/uL (4.0-5.2); WHITE BLOOD COUNT (AUTO) 10.8 K/uL (4.3-11.0)
[2021-05-28] MEDS ORDERED: KETOROLAC TROMETHAMINE INJ 30 MG/ML VIAL ONE (01:37)
[2021-05-28 01:53] LABS: BILIRUBIN,URINE NEGATIVE (NEGATIVE); COLOR,URINE YELLOW (YELLOW); LEUKOCYTE ESTERASE ,URINE NEGATIVE (NEGATIVE); NITRITE, URINE NEGATIVE (NEGATIVE); PROTEIN,URINE NEGATIVE (NEGATIVE); UGLUCOSE NEGATIVE (NEGATIVE); UROBILINOGEN,URINE 0.2 EU/dL (0.2)
[2021-05-28 01:53] LABS: ALBUMIN 3.9 g/dL (3.4-5.0); BILIRUBIN,DIRECT 0.2 mg/dL (0.0-0.2); BILIRUBIN,TOTAL 0.5 mg/dL (0.2-1.0); CALCIUM, SERUM 8.3 mg/dL (8.5-10.1); CREATININE 0.7 mg/dL (0.6-1.3); POTASSIUM 3.8 mmol/L (3.5-5.1); TOTAL PROTEIN, SERUM 8.1 g/dL (6.4-8.2)
[2021-05-28] MEDS ORDERED: KETOROLAC TROMETHAMINE INJ 30 MG/ML VIAL IV ONE (02:00)
[2021-05-28 02:04] LABS: BACTERIA,URINE Few /HPF (None Seen); RBC,URINE 0-2 /HPF (0-2); SQUAMOUS EPITHELIAL CELL,UR Few /HPF (None Seen); WBC,URINE 0-2 /HPF (0-3)
--- NOTE | 2021-05-28 02:06 | NUR ---
Kevin kelley in [facility] - 05/28/21 at 0210 by KING taken to radiology
--- NOTE | 2021-05-28 02:20 | NUR ---
TAKEN TO CT
--- NOTE | 2021-05-28 02:34 | NUR ---
RETURNED FROM CT
[2021-05-28] MEDS ORDERED: HYDR-3972 PO (03:24)
[2021-05-28] MEDS ORDERED: ONDA4TAB5 PO (03:24)
[2021-05-28] MEDS ORDERED: ONDANSETRON 4 MG TAB.RAPDIS ONE (03:33)
--- NOTE | 2021-05-28 03:34 | NUR ---
VERBAL ORDER 4MG ZOFRAN SL
--- NOTE | 2021-05-28 03:35 | NUR ---
Patient discharged to home in stable condition. Written and verbal after care instructions given. Patient verbalizes understanding of instruction. IV removed. Catheter intact and site benign. Pressure and 4x4 applied to site. No bleeding noted. PT ambulatory with a steady gait
[2021-05-28] MEDS ORDERED: ONDANSETRON 4 MG TAB.RAPDIS SL ONE (04:00)
[2021-05-28 04:19] VITALS: BP 108/70
== END 2021-05-28 03:35 | disposition home or self-care (01) ==
LOC: ER 00:33
DX: K56.7 Ileus, unspecified (principal); F41.9 Anxiety disorder, unspecified; F41.0 Panic disorder [episodic paroxysmal anxiety]; Z88.0 Allergy status to penicillin; Z60.2 Problems related to living alone; Z79.899 Other long term (current) drug therapy; Z87.442 Personal history of urinary calculi
CPT/HCPCS: 36415; 74176; 80048; 80076; 81001; 83690; 84703; 85025; 85730; 96361; 96374; 96375; 99284; J1885; J2270; J2405; J7030; Q0162

== ENCOUNTER 2022-10-11 05:46 | Emergency (ER) | payer OTHER ==
[~2022-10-11] VITALS: Ht 170.2 cm; Wt 49.9 kg
[~2022-10-11 05:46] MED LIST changes: +HYDR-3972 PO; +PRED50TA PO
[2022-10-11] MEDS: IV NS 0.9% 1,000 ML BAG IV ONE (06:17)
[2022-10-11] MEDS ORDERED: ONDANSETRON HCL/PF 4 MG/2 ML VIAL ONE (06:19)
[2022-10-11] MEDS ORDERED: PANTOPRAZOLE 40 MG VIAL ONE (06:19)
[2022-10-11] MEDS ORDERED: KETOROLAC TROMETHAMINE 15 MG/ML VIAL ONE (06:19)
[2022-10-11] MEDS: PANTOPRAZOLE 40 MG VIAL IV ONE (06:26)
[2022-10-11] MEDS: KETOROLAC TROMETHAMINE INJ 30 MG/ML VIAL IV ONE (06:28)
[2022-10-11] MEDS: ONDANSETRON HCL/PF 4 MG/2 ML VIAL IVP ONE (06:29)
[2022-10-11 06:36] LABS: BILIRUBIN,URINE NEGATIVE (NEGATIVE); COLOR,URINE YELLOW (YELLOW); LEUKOCYTE ESTERASE ,URINE NEGATIVE (NEGATIVE); NITRITE, URINE NEGATIVE (NEGATIVE); PH,URINE 5.5 (5.0-8.0); PROTEIN,URINE NEGATIVE (NEGATIVE); UGLUCOSE NEGATIVE (NEGATIVE); UROBILINOGEN,URINE 0.2 EU/dL (0.2)
[2022-10-11 07:13] LABS: BASOPHILS % (AUTO) 0.4 % (0.0-2.0); EOSINOPHILS % (AUTO) 2.4 % (0.0-6.0); HEMATOCRIT 35 % (33-45); HEMOGLOBIN 11.8 g/dL (11.5-14.8); LYMPHOCYTES # (AUTO) 1.8 K/uL (0.8-4.8); LYMPHOCYTES % (AUTO) 21.4 % (20.0-44.0); MEAN CORPUSCULAR HGB CONC 33 g/dl (31.0-36.0); MEAN CORPUSCULAR VOLUME 92 fL (82-100); MONOCYTES # (AUTO) 0.5 K/uL (0.1-1.30); MONOCYTES % (AUTO) 6.2 % (2.0-12.0); NEUTROPHILS # (AUTO) 5.7 K/uL (1.8-8.9); NEUTROPHILS % (AUTO) 69.6 % (43.0-81.0); PLATELET COUNT (AUTO) 242 K/uL (150-450); RED BLOOD CELL COUNT(AUTO) 3.82 MIL/uL (4.0-5.2); WHITE BLOOD COUNT (AUTO) 8.2 K/uL (4.3-11.0)
[2022-10-11 07:15] LABS: CALCIUM, SERUM 7.9 mg/dL (8.5-10.1); CARBON DIOXIDE 23 mmol/L (21-32); CHLORIDE 108 mmol/L (98-107); CREATININE 0.6 mg/dL (0.6-1.3); GLUCOSE 103 mg/dL (74-106); POTASSIUM 3.9 mmol/L (3.5-5.1); SODIUM SERUM 140 mmol/L (136-145); UREA NITROGEN, BLOOD 11 mg/dL (7-18)
[2022-10-11 07:22] LABS: ALANINE AMINOTRANSFERASE 17 U/L (12-78); ALBUMIN 3.3 g/dL (3.4-5.0); ALKALINE PHOSPHATASE 47 U/L (46-116); ASPARTATE AMINOTRANSFERASE 17 U/L (15-37); BILIRUBIN,DIRECT 0.2 mg/dL (0.0-0.2); BILIRUBIN,TOTAL 0.7 mg/dL (0.2-1.0); LIPASE 188 U/L (73-393); TOTAL PROTEIN, SERUM 6.5 g/dL (6.4-8.2)
[2022-10-11] MEDS ORDERED: ONDA4TAB11 PO (08:59)
[2022-10-11] MEDS ORDERED: MAG-55 PO (08:59)
[2022-10-11] MEDS ORDERED: KETO10TA2 PO (08:59)
[2022-10-11] MEDS ORDERED: FAMO-131 PO (08:59)
[2022-10-11] MEDS ORDERED: MAG HYDROX/AL HYDROX/SIMETH 30 ML UDC ONE (09:02)
[2022-10-11] MEDS: MAG HYDROX/AL HYDROX/SIMETH 30 ML UDC PO ONE (09:24)
[2022-10-11] MEDS: LIDOCAINE VISCOUS 2% UD 15 ML UDC MM ONE (09:24)
[2022-10-11 09:25] VITALS: BP 110/62
== END 2022-10-11 09:25 | disposition home or self-care (01) ==
LOC: ER 05:51
DX: K52.9 Noninfective gastroenteritis and colitis, unspecified (principal); R11.2 Nausea with vomiting, unspecified; F41.9 Anxiety disorder, unspecified; F17.200 Nicotine dependence, unspecified, uncomplicated; Z87.442 Personal history of urinary calculi; Z60.2 Problems related to living alone; Z79.899 Other long term (current) drug therapy
CPT/HCPCS: 99285; 96374; 71045; 96375; 93005; 85025; 80048; 83690; 80076; 84703; 81003; 36415; 84484; J2405; J7030; C9113; J1885

== ENCOUNTER 2023-02-18 22:53 | Emergency (ER) | payer OTHER ==
[~2023-02-18] VITALS: Ht 170.2 cm; Wt 49.9 kg
[~2023-02-18 22:53] MED LIST changes: +FAMO-131 PO; +KETO10TA2 PO; +MAG-55 PO; +ONDA4TAB11 PO
--- NOTE | 2023-02-19 00:16 | NUR ---
RT CALLED FOR ABG
--- NOTE | 2023-02-19 00:48 | NUR ---
RT AT PT'S BEDSIDE FOR ABG
[2023-02-19 00:56] LABS: ABG BASE EXCESS -2.4 mmol/L; ABG OXYGEN SATURATION 98.3 % (92.0-98.5); ABG PH 7.521 (7.350-7.450); ABG PO2 109.8 mmHg (75.0-100.0); COHb 0.2 % (0.5-1.5); MetHb 0.2 % (0.0-1.5); O2Hb 97.9 % (94.0-97.0); SITE, ABG Left Brachial; VENT MODE, BG room air
--- NOTE | 2023-02-19 01:15 | NUR ---
ACCU CHECK DONE 88MG/DL
[2023-02-19 01:58] VITALS: BP 100/82; TEMP 98.1; O2SAT 96
== END 2023-02-19 01:58 | disposition home or self-care (01) ==
LOC: ER 02-19 00:02
DX: R42 Dizziness and giddiness (principal); Z71.6 Tobacco abuse counseling; F41.9 Anxiety disorder, unspecified; F17.210 Nicotine dependence, cigarettes, uncomplicated; Z79.899 Other long term (current) drug therapy; Z60.2 Problems related to living alone; Z88.0 Allergy status to penicillin
CPT/HCPCS: 36600; 82803-TC; 82962-TC

== ENCOUNTER 2024-03-29 03:45 | Emergency (ER) | payer OTHER ==
[~2024-03-29] VITALS: Ht 167.6 cm; Wt 61.2 kg
[2024-03-29 06:56] VITALS: BP 122/75; TEMP 98.2; O2SAT 99
== END 2024-03-29 06:56 | disposition home or self-care (01) ==
LOC: ER 04:00
DX: J31.0 Chronic rhinitis (principal); F41.9 Anxiety disorder, unspecified; F41.0 Panic disorder [episodic paroxysmal anxiety]; E06.3 Autoimmune thyroiditis; F17.200 Nicotine dependence, unspecified, uncomplicated; Z87.19 Personal history of other diseases of the digestive system; Z60.2 Problems related to living alone